=== PATIENT | female | born 1965 | race Caucasian/White ===

== ENCOUNTER 2017-04-09 23:23 | Emergency (ER) | payer MEDICAID ==
[~2017-04-09] VITALS: Ht 177.8 cm; Wt 89.8 kg
[~2017-04-09 23:23] MED LIST: CYCL-394 PO; ESCI10TA45 PO; IBUP-1051 PO; IBUP-1984 PO; LEVO125T PO; LEVO125T69 PO; ONDA8TAB9 PO; SUMA6VIA19 SQ
[2017-04-09] MEDS ORDERED: HYDROmorphone inj. 0.5 MG/0.5 ML DISP.SYRIN IM ONE (23:40)
[2017-04-10] MEDS ORDERED: IBUP-1984 PO (00:11)
[2017-04-10] MEDS ORDERED: HYDR-3965 PO (00:11)
[2017-04-10] MEDS ORDERED: LEVO175T2 PO (00:11)
[2017-04-10 01:09] VITALS: BP 145/89
== END 2017-04-10 01:13 | disposition home or self-care (01) ==
LOC: ER 23:23
DX: S60.221A Contusion of right hand, initial encounter (principal); G43.909 Migraine, unspecified, not intractable, without status migrainosus; I10 Essential (primary) hypertension; F17.200 Nicotine dependence, unspecified, uncomplicated; Z86.14 Personal history of Methicillin resistant Staphylococcus aureus infection; Z86.19 Personal history of other infectious and parasitic diseases; Z88.5 Allergy status to narcotic agent; Z79.899 Other long term (current) drug therapy; W22.8XXA Striking against or struck by other objects, initial encounter; Y93.89 Activity, other specified; Y92.89 Other specified places as the place of occurrence of the external cause; Y99.8 Other external cause status
CPT/HCPCS: 29125; 71101; 73130; 96372; 99284; J1170; 96361; 96374

== ENCOUNTER 2017-08-17 15:11 | Outpatient (CLI) | payer MEDICAID ==
[~2017-08-17 15:11] MED LIST changes: +LEVO175T2 PO
== END 2017-08-17 23:59 | disposition home or self-care (01) ==
LOC: RAD 15:11
PROVIDERS: ATTEND Nurse Practitioner Family
DX: M79.631 Pain in right forearm (principal); F17.200 Nicotine dependence, unspecified, uncomplicated
CPT/HCPCS: 73090

== ENCOUNTER 2018-03-09 18:55 | Emergency (ER) | payer MEDICAID ==
[~2018-03-09] VITALS: Ht 180.3 cm; Wt 63.4 kg
--- NOTE | 2018-03-09 19:59 | NUR ---
Patient laying on gurney, very sleepy and whipers. I will continue to monitor.
--- NOTE | 2018-03-09 21:20 | NUR ---
Patient with radiology
--- NOTE | 2018-03-09 21:34 | NUR ---
Patient is back from xray.
[2018-03-09] MEDS ORDERED: NAPR-56 PO (21:50)
[2018-03-09] MEDS ORDERED: SUMAtriptan succ. 6 MG/0.5ml vial SQ ONE (21:50)
[2018-03-09 22:13] VITALS: BP 157/113
== END 2018-03-09 22:18 | disposition home or self-care (01) ==
LOC: ER 18:55
DX: S51.811A Laceration without foreign body of right forearm, initial encounter (principal); M25.572 Pain in left ankle and joints of left foot; M24.562 Contracture, left knee; R51 Headache; I10 Essential (primary) hypertension; F17.210 Nicotine dependence, cigarettes, uncomplicated; Z98.51 Tubal ligation status; Z98.890 Other specified postprocedural states; Z88.5 Allergy status to narcotic agent; Z79.899 Other long term (current) drug therapy; Y04.0XXA Assault by unarmed brawl or fight, initial encounter; Y93.89 Activity, other specified; Y92.89 Other specified places as the place of occurrence of the external cause; Y99.9 Unspecified external cause status
CPT/HCPCS: 12002; 70450; 72125; 73560; 73610; 96372; 99284; J3030

== ENCOUNTER 2018-04-07 09:19 | Emergency (ER) | payer MEDICAID ==
[~2018-04-07] VITALS: Ht 180.3 cm; Wt 96.0 kg
[~2018-04-07 09:19] MED LIST changes: +NAPR-56 PO
[2018-04-07 09:47] LABS: BASOPHILS % (AUTO) 0.2 % (0-1); EOSINOPHILS # (AUTO) 0.4 X10'3 (0-0.9); HEMATOCRIT 41.9 % (35.0-45.0); HEMOGLOBIN 14.3 g/dl (12.0-16.0); LYMPHOCYTES # (AUTO) 2.2 X10'3 (1.1-4.8); LYMPHOCYTES % (AUTO) 29.9 % (21-51); MEAN CORPUSCULAR HEMOGLOBIN 32.4 PG (27.0-31.0); MEAN CORPUSCULAR HGB CONC 34.2 g/dL (33.0-36.5); MEAN CORPUSCULAR VOLUME 94.8 FL (78-98); MEAN PLATELET VOLUME 7.7 FL (7.4-10.4); MONOCYTES # (AUTO) 0.5 X10'3 (0-0.9); MONOCYTES % (AUTO) 7.1 % (2-12); NEUTROPHILS # (AUTO) 4.3 X10'3 (1.8-7.7); NEUTROPHILS % (AUTO) 57.8 % (42-75); PLATELET COUNT 289 X10'3 (140-440); RED BLOOD COUNT 4.42 X10'6 (4.20-5.60); RED CELL DISTRIBUTION WIDTH 14.8 % (11.5-14.5); WHITE BLOOD COUNT 7.5 X10'3 (4.5-11.0)
[2018-04-07 09:57] LABS: ALANINE AMINOTRANSFERASE 53 U/L (12-78); ALBUMIN 3.5 G/DL (3.4-5.0); ALBUMIN/GLOBULIN RATIO 0.7 (1.1-1.5); ALKALINE PHOSPHATASE 90 IU/L (46-116); ANION GAP 10 (8-16); ASPARTATE AMINO TRANSFERASE 60 U/L (10-37); BILIRUBIN,TOTAL 0.4 MG/DL (0.1-1.0); BLOOD UREA NITROGEN 17 MG/DL (7-18); BUN/CREATININE RATIO 14.2 (6.6-38.0); CALCIUM 9.3 MG/DL (8.5-10.1); CHLORIDE 102 MMOL/L (99-107); GLUCOSE 89 MG/DL (70-104); PARTIAL THROMBOPLASTIN TIME 29 SECONDS (22-32); POTASSIUM 3.8 MMOL/L (3.5-5.1); PROTHROMBIN TIME 10.2 SECONDS (9.0-12.0); SODIUM 138 MMOL/L (135-145); TOTAL CARBON DIOXIDE 25.9 MMOL/L (24-32); TOTAL PROTEIN 8.7 G/DL (6.4-8.2); eGFR 47 ML/MIN
[2018-04-07 10:02] LABS: TROPONIN I < 0.04 NG/ML (0.0-0.05)
[2018-04-07] MEDS ORDERED: LEVO175T2 PO (12:40)
--- NOTE | 2018-04-07 13:37 | NUR ---
Per [facility], PT was last seen on August 21, 2017. Her TSH level was 150.
[2018-04-07] MEDS ORDERED: levoTHYROXINE sod inj. 100mcg/5 ml vial IV SCH (13:45)
[2018-04-07 14:38] VITALS: BP 162/97
== END 2018-04-07 14:39 | disposition home or self-care (01) ==
LOC: ER 09:19
DX: R53.1 Weakness (principal); R42 Dizziness and giddiness; I10 Essential (primary) hypertension; E03.9 Hypothyroidism, unspecified; R41.0 Disorientation, unspecified; G43.909 Migraine, unspecified, not intractable, without status migrainosus; Z76.0 Encounter for issue of repeat prescription; Z98.51 Tubal ligation status; Z98.890 Other specified postprocedural states; Z88.5 Allergy status to narcotic agent; Z79.899 Other long term (current) drug therapy; Z86.73 Personal history of transient ischemic attack (TIA), and cerebral infarction without residual deficits
CPT/HCPCS: 36415; 70450; 71045; 80053; 82948; 84443; 84484; 85025; 85610; 85730; 93005; 96374; 99284; 99285

== ENCOUNTER 2019-04-11 13:05 | Emergency (ER) | payer MEDICAID ==
[~2019-04-11] VITALS: Ht 180.3 cm; Wt 86.4 kg
[~2019-04-11 13:05] MED LIST changes: -NAPR-56 PO
[2019-04-11 13:22] VITALS: BP 154/104
[2019-04-11] MEDS ORDERED: diphenhydrAMINE 25mg capsule PO ONE (16:55)
[2019-04-11] MEDS ORDERED: proCHLORperazine 10 MG/2 ml inj IM ONE (16:55)
[2019-04-11] MEDS: ketorolac tromethamine 15mg/ml inj. IM ONE ×2 (17:13→17:22)
[2019-04-11 17:17] LABS: BASOPHILS # (AUTO) 0.1 X10'3 (0-0.2); BASOPHILS % (AUTO) 1.1 % (0-1); EOSINOPHILS # (AUTO) 0.2 X10'3 (0-0.9); EOSINOPHILS % (AUTO) 2.1 % (0-6); HEMATOCRIT 47.4 % (35.0-45.0); HEMOGLOBIN 16.2 g/dl (12.0-16.0); LYMPHOCYTES # (AUTO) 1.7 X10'3 (1.1-4.8); LYMPHOCYTES % (AUTO) 18.5 % (21-51); MEAN CORPUSCULAR HEMOGLOBIN 32.3 PG (27.0-31.0); MEAN CORPUSCULAR HGB CONC 34.2 g/dL (33.0-36.5); MEAN CORPUSCULAR VOLUME 94.5 FL (78-98); MEAN PLATELET VOLUME 7.7 FL (7.4-10.4); MONOCYTES # (AUTO) 0.6 X10'3 (0-0.9); MONOCYTES % (AUTO) 6.5 % (2-12); NEUTROPHILS # (AUTO) 6.6 X10'3 (1.8-7.7); NEUTROPHILS % (AUTO) 71.8 % (42-75); PLATELET COUNT 304 X10'3 (140-440); RED BLOOD COUNT 5.01 X10'6 (4.20-5.60); RED CELL DISTRIBUTION WIDTH 13.4 % (11.5-14.5); WHITE BLOOD COUNT 9.2 X10'3 (4.5-11.0)
[2019-04-11] MEDS ORDERED: SUMAtriptan succ. 6 MG/0.5ml vial SQ ONE (17:25)
[2019-04-11 17:27] LABS: ALANINE AMINOTRANSFERASE 56 U/L (12-78); ALBUMIN 3.7 G/DL (3.4-5.0); ALBUMIN/GLOBULIN RATIO 0.6 (1.1-1.5); ALKALINE PHOSPHATASE 125 IU/L (46-116); ANION GAP 8 (8-16); ASPARTATE AMINO TRANSFERASE 45 U/L (10-37); BILIRUBIN,TOTAL 0.6 MG/DL (0.1-1.0); BLOOD UREA NITROGEN 11 MG/DL (7-18); BUN/CREATININE RATIO 11.8 (6.6-38.0); CALCIUM 9.5 MG/DL (8.5-10.1); CHLORIDE 101 MMOL/L (99-107); CREATININE 0.93 MG/DL (0.40-0.90); POTASSIUM 4.2 MMOL/L (3.5-5.1); SODIUM 138 MMOL/L (135-145); TOTAL CARBON DIOXIDE 28.8 MMOL/L (24-32); TOTAL PROTEIN 9.4 G/DL (6.4-8.2); eGFR 63 ML/MIN
[2019-04-11 17:39] LABS: GLUCOSE 95 MG/DL (70-104)
[2019-04-11] MEDS ORDERED: levoTHYROXINE 125mcg tablet PO STA (17:49)
[2019-04-11] MEDS ORDERED: LEVO75TA PO (18:21)
[2019-04-11] MEDS ORDERED: LEVO50TA PO (18:21)
[2019-04-11] MEDS ORDERED: SUMA50TA PO (18:21)
== END 2019-04-11 19:03 | disposition home or self-care (01) ==
LOC: ER 13:06
DX: E03.9 Hypothyroidism, unspecified (principal); G43.909 Migraine, unspecified, not intractable, without status migrainosus; I10 Essential (primary) hypertension; F41.9 Anxiety disorder, unspecified; F32.9 Major depressive disorder, single episode, unspecified; Z86.19 Personal history of other infectious and parasitic diseases; Z86.14 Personal history of Methicillin resistant Staphylococcus aureus infection; Z98.51 Tubal ligation status; Z98.890 Other specified postprocedural states; Z88.5 Allergy status to narcotic agent; Z79.899 Other long term (current) drug therapy
CPT/HCPCS: 36415; 80053; 84443; 85025; 96372; 99284; J0780; Q0163; J1885; J3030

== ENCOUNTER 2020-01-28 14:40 | Emergency (ER) | payer MEDICAID ==
[~2020-01-28] VITALS: Ht 179.1 cm; Wt 91.9 kg
[~2020-01-28 14:40] MED LIST changes: +LEVO50TA PO
[2020-01-28 14:48] VITALS: BP 161/108
[2020-01-29] MEDS ORDERED: MINO100T PO (12:06)
[2020-01-29] MEDS ORDERED: MUPI22OI30 TOP (12:06)
[2020-01-29] MEDS ORDERED: IBUP-1984 PO (12:06)
== END 2020-01-28 17:07 | disposition left against medical advice (07) ==
LOC: ER 14:40
DX: R21 Rash and other nonspecific skin eruption (principal); Z53.21 Procedure and treatment not carried out due to patient leaving prior to being seen by health care provider
CPT/HCPCS: 99281

== ENCOUNTER 2020-01-29 11:40 | Emergency (ER) | payer MEDICAID ==
[~2020-01-29] VITALS: Ht 180.3 cm; Wt 81.8 kg
[2020-01-29 11:50] VITALS: BP 158/97
[2020-01-29] MEDS ORDERED: MINO100T PO (12:06)
[2020-01-29] MEDS ORDERED: IBUP-1984 PO (12:06)
[2020-01-29] MEDS ORDERED: MUPI22OI30 TOP (12:06)
== END 2020-01-29 12:36 | disposition home or self-care (01) ==
LOC: ER 11:40
DX: L73.9 Follicular disorder, unspecified (principal); G43.909 Migraine, unspecified, not intractable, without status migrainosus; I10 Essential (primary) hypertension; F41.9 Anxiety disorder, unspecified; F32.9 Major depressive disorder, single episode, unspecified; E07.9 Disorder of thyroid, unspecified; Z98.51 Tubal ligation status; Z88.5 Allergy status to narcotic agent; Z79.899 Other long term (current) drug therapy
CPT/HCPCS: 99283

== ENCOUNTER 2020-05-01 18:36 | Emergency (ER) | payer MEDICAID ==
[~2020-05-01] VITALS: Ht 177.8 cm; Wt 93.2 kg
[~2020-05-01 18:36] MED LIST changes: +MINO100T PO
[2020-05-01] MEDS ORDERED: HYDROcodone/acetaminophen 10/325mg tab PO ONE (19:20)
[2020-05-01 20:18] VITALS: BP 158/92
== END 2020-05-01 20:00 | disposition home or self-care (01) ==
LOC: ER 18:37
DX: S80.12XA Contusion of left lower leg, initial encounter (principal); S16.1XXA Strain of muscle, fascia and tendon at neck level, initial encounter; G43.909 Migraine, unspecified, not intractable, without status migrainosus; I10 Essential (primary) hypertension; F41.9 Anxiety disorder, unspecified; F32.9 Major depressive disorder, single episode, unspecified; Z86.19 Personal history of other infectious and parasitic diseases; Z86.14 Personal history of Methicillin resistant Staphylococcus aureus infection; Z98.51 Tubal ligation status; Z98.890 Other specified postprocedural states; Z88.5 Allergy status to narcotic agent; Z79.899 Other long term (current) drug therapy; W18.39XA Other fall on same level, initial encounter; Y93.89 Activity, other specified; Y92.89 Other specified places as the place of occurrence of the external cause; Y99.8 Other external cause status
CPT/HCPCS: 73590; 99284

== ENCOUNTER 2020-10-14 13:27 | Emergency (ER) | payer MEDICAID | END 2020-10-14 16:08 | disposition left against medical advice (07) | LOC: ER 13:27 | DX: Z53.21 Procedure and treatment not carried out due to patient leaving prior to being seen by health care provider (principal) ==

== ENCOUNTER 2020-10-27 10:07 | Emergency (ER) | payer MEDICAID ==
[~2020-10-27] VITALS: Ht 177.8 cm; Wt 91.8 kg
[2020-10-27 10:22] VITALS: BP 154/103
== END 2020-10-27 14:08 | disposition left against medical advice (07) ==
LOC: ER 10:07
DX: R07.89 Other chest pain (principal); Z53.21 Procedure and treatment not carried out due to patient leaving prior to being seen by health care provider

== ENCOUNTER 2020-10-28 11:00 | Emergency (ER) | payer MEDICAID ==
[~2020-10-28] VITALS: Ht 177.8 cm; Wt 91.8 kg
[2020-10-28] MEDS ORDERED: acetaminophen 325mg tablet PO ONE (12:50)
[2020-10-28 13:37] VITALS: BP 109/79
== END 2020-10-28 13:42 | disposition home or self-care (01) ==
LOC: ER 11:01
DX: S20.211A Contusion of right front wall of thorax, initial encounter (principal); G43.909 Migraine, unspecified, not intractable, without status migrainosus; I10 Essential (primary) hypertension; Z86.14 Personal history of Methicillin resistant Staphylococcus aureus infection; Z86.19 Personal history of other infectious and parasitic diseases; Z98.51 Tubal ligation status; Z98.890 Other specified postprocedural states; Z88.8 Allergy status to other drugs, medicaments and biological substances; Z79.899 Other long term (current) drug therapy; W22.8XXA Striking against or struck by other objects, initial encounter; Y93.01 Activity, walking, marching and hiking; Y92.89 Other specified places as the place of occurrence of the external cause; Y99.8 Other external cause status
CPT/HCPCS: 99282; 99283

== ENCOUNTER 2021-05-23 03:12 | Emergency (ER) | payer MEDICAID ==
[~2021-05-23] VITALS: Ht 177.8 cm; Wt 92.7 kg
[~2021-05-23 03:12] MED LIST changes: +SUMA6VIA17 SQ; -SUMA6VIA19 SQ
[2021-05-23 03:16] VITALS: BP 160/101
[2021-05-23] MEDS ORDERED: TETanus/Pertussis (Acell)/Diphther VAC/PF (Tdap-Adult) 0.5ml syringe IMVAC ONE (04:50)
== END 2021-05-23 05:12 ==
LOC: ER 03:12
DX: S61.411A Laceration without foreign body of right hand, initial encounter (principal); G43.909 Migraine, unspecified, not intractable, without status migrainosus; I10 Essential (primary) hypertension; F41.9 Anxiety disorder, unspecified; F32.A Depression, unspecified; Z00.8 Encounter for other general examination; Z86.19 Personal history of other infectious and parasitic diseases; Z86.14 Personal history of Methicillin resistant Staphylococcus aureus infection; Z98.51 Tubal ligation status; Z98.890 Other specified postprocedural states; Z88.5 Allergy status to narcotic agent; Z88.8 Allergy status to other drugs, medicaments and biological substances; Z20.3 Contact with and (suspected) exposure to rabies; Z79.899 Other long term (current) drug therapy; W45.8XXA Other foreign body or object entering through skin, initial encounter; Y93.89 Activity, other specified; Y92.89 Other specified places as the place of occurrence of the external cause; Y99.8 Other external cause status
CPT/HCPCS: 12001; 90471; 90715; 99283

== ENCOUNTER 2021-08-09 00:15 | Emergency (ER) | payer MEDICAID ==
[~2021-08-09] VITALS: Ht 177.8 cm; Wt 96.8 kg
[2021-08-09 00:59] VITALS: BP 166/120
== END 2021-08-09 03:45 | disposition left against medical advice (07) ==
LOC: ER 00:16
DX: Z00.8 Encounter for other general examination (principal); Z53.21 Procedure and treatment not carried out due to patient leaving prior to being seen by health care provider

== ENCOUNTER 2021-12-01 13:10 | Emergency (ER) | payer MEDICAID ==
[~2021-12-01] VITALS: Ht 180.3 cm; Wt 94.5 kg
[2021-12-01 13:14] VITALS: BP 180/100
[2021-12-01] MEDS ORDERED: HYDR-3965 PO (16:21)
== END 2021-12-01 16:42 | disposition home or self-care (01) ==
LOC: ER 13:11
DX: S20.211A Contusion of right front wall of thorax, initial encounter (principal); G43.909 Migraine, unspecified, not intractable, without status migrainosus; I10 Essential (primary) hypertension; Z88.8 Allergy status to other drugs, medicaments and biological substances; Z88.5 Allergy status to narcotic agent; Z98.51 Tubal ligation status; W19.XXXA Unspecified fall, initial encounter; Y93.89 Activity, other specified; Y92.89 Other specified places as the place of occurrence of the external cause; Y99.8 Other external cause status
CPT/HCPCS: 71045; 99283

== ENCOUNTER 2022-04-13 18:39 | Emergency (ER) | payer MEDICAID ==
[~2022-04-13] VITALS: Ht 177.8 cm; Wt 97.7 kg
[2022-04-13 19:41] LABS: BASOPHILS # (AUTO) 0.2 X10'3 (0-0.2); BASOPHILS % (AUTO) 1.4 % (0-1); EOSINOPHILS # (AUTO) 0.2 X10'3 (0-0.9); EOSINOPHILS % (AUTO) 1.3 % (0-6); HEMATOCRIT 43.3 % (35.0-45.0); HEMOGLOBIN 14.5 g/dl (12.0-16.0); LYMPHOCYTES # (AUTO) 1.6 X10'3 (1.1-4.8); LYMPHOCYTES % (AUTO) 13.7 % (21-51); MEAN CORPUSCULAR HEMOGLOBIN 32.6 PG (27.0-31.0); MEAN CORPUSCULAR HGB CONC 33.6 g/dL (33.0-36.5); MEAN CORPUSCULAR VOLUME 97.2 FL (78-98); MEAN PLATELET VOLUME 7.9 FL (7.4-10.4); MONOCYTES # (AUTO) 1.2 X10'3 (0-0.9); MONOCYTES % (AUTO) 9.9 % (2-12); NEUTROPHILS # (AUTO) 8.8 X10'3 (1.8-7.7); NEUTROPHILS % (AUTO) 73.7 % (42-75); PLATELET COUNT 266 X10'3 (140-440); RED BLOOD COUNT 4.46 X10'6 (4.20-5.60); RED CELL DISTRIBUTION WIDTH 14.1 % (11.5-14.5); WHITE BLOOD COUNT 11.9 X10'3 (4.5-11.0)
[2022-04-13 19:45] LABS: ALANINE AMINOTRANSFERASE 44 U/L (12-78); ALBUMIN 3.5 G/DL (3.4-5.0); ALBUMIN/GLOBULIN RATIO 0.6 (1.1-1.5); ALKALINE PHOSPHATASE 98 IU/L (46-116); ANION GAP 3 (8-16); ASPARTATE AMINO TRANSFERASE 46 U/L (10-37); BILIRUBIN,TOTAL 1.1 MG/DL (0.1-1.0); BLOOD UREA NITROGEN 10 MG/DL (7-18); BUN/CREATININE RATIO 9.3 (6.6-38.0); CALCIUM 9.3 MG/DL (8.5-10.1); CHLORIDE 98 MMOL/L (99-107); CREATININE 1.08 MG/DL (0.40-0.90); GLUCOSE 112 MG/DL (70-104); POTASSIUM 3.2 MMOL/L (3.5-5.1); SODIUM 130 MMOL/L (135-145); eGFR 52 ML/MIN
[2022-04-13] MEDS ORDERED: normal saline 1000ML IV soln IVB ONE (20:35)
[2022-04-13] MEDS ORDERED: diphenhydrAMINE 50 mg/ml inj IV ONE (20:35)
[2022-04-13] MEDS ORDERED: haloperidol lactate 5mg/ml inj IM ONE (20:35)
[2022-04-13] MEDS ORDERED: ketorolac trometh. 30mg/ml inj. IV ONE (20:35)
[2022-04-13] MEDS ORDERED: AZIT-83 PO (22:16)
[2022-04-13 23:30] VITALS: BP 154/87
[2022-04-14] MEDS ORDERED: AMOX-580 PO (00:24)
== END 2022-04-14 00:53 | disposition home or self-care (01) ==
LOC: ER 18:39
DX: J32.9 Chronic sinusitis, unspecified (principal); G43.909 Migraine, unspecified, not intractable, without status migrainosus; I10 Essential (primary) hypertension; Z88.5 Allergy status to narcotic agent; Z88.8 Allergy status to other drugs, medicaments and biological substances; Z98.51 Tubal ligation status
CPT/HCPCS: 36415; 71045; 80053; 83880; 84145; 84484; 85025; 93005; 96372; 96374; 96375; 99285; J1200; J1630; J1885; J7030

== ENCOUNTER 2023-06-17 10:19 | Emergency (ER) | payer MEDICAID ==
[~2023-06-17] VITALS: Ht 177.8 cm; Wt 99.5 kg
[~2023-06-17 10:19] MED LIST changes: -MINO100T PO; +MINO100T10 PO
[2023-06-17 10:38] VITALS: BP 159/106; PULSE 76; RESP 18; TEMP 97.8; O2SAT 98
[2023-06-17] MEDS ORDERED: PRED20TA PO (12:23)
[2023-06-17] MEDS: dexamethasone sod phosphate 10mg/ml inj IM STA (12:43)
== END 2023-06-17 12:55 | disposition home or self-care (01) ==
LOC: ER 10:20
DX: M25.571 Pain in right ankle and joints of right foot (principal); G43.909 Migraine, unspecified, not intractable, without status migrainosus; I10 Essential (primary) hypertension; Z88.6 Allergy status to analgesic agent; Z88.5 Allergy status to narcotic agent; Z79.899 Other long term (current) drug therapy; Z79.1 Long term (current) use of non-steroidal anti-inflammatories (NSAID); Z98.51 Tubal ligation status
CPT/HCPCS: 73610; 96372; 99284; J1100

== ENCOUNTER 2023-09-25 11:18 | Emergency (ER) | payer MEDICAID ==
[2023-09-25] MEDS: LIDOcaine/epinephrine/tetracaine TOPICAL sol 3 ML syringe TOP ONE (13:38)
[2023-09-25] MEDS: LIDOcaine 1% 30ml preserv. free vial SQ STA (14:11)
[2023-09-25] MEDS ORDERED: CEPH-585 PO (14:45)
[2023-09-25] MEDS ORDERED: SULF1TAB45 PO (14:45)
[2023-09-25] MEDS ORDERED: DOXY-356 PO (14:57)
[2023-09-25 15:00] VITALS: BP 154/102; PULSE 69; RESP 16; TEMP 98.1; O2SAT 97
== END 2023-09-25 15:03 | disposition home or self-care (01) ==
LOC: ER 11:19
DX: S91.312A Laceration without foreign body, left foot, initial encounter (principal); M25.571 Pain in right ankle and joints of right foot; G43.909 Migraine, unspecified, not intractable, without status migrainosus; I10 Essential (primary) hypertension; F41.9 Anxiety disorder, unspecified; F32.A Depression, unspecified; Z88.5 Allergy status to narcotic agent; Z79.899 Other long term (current) drug therapy; Z79.2 Long term (current) use of antibiotics; Z79.1 Long term (current) use of non-steroidal anti-inflammatories (NSAID); Z98.51 Tubal ligation status; W04.XXXA Fall while being carried or supported by other persons, initial encounter; Y93.89 Activity, other specified; Y92.89 Other specified places as the place of occurrence of the external cause; Y99.8 Other external cause status
CPT/HCPCS: 12006; 73630; 99283; J3490; J7030; A6258; A6449

== ENCOUNTER 2023-11-06 12:35 | Outpatient (CLI) | payer MEDICAID ==
[~2023-11-06 12:35] MED LIST changes: +CEPH-585 PO
== END 2023-11-06 23:59 | disposition home or self-care (01) ==
LOC: VAS 12:35
PROVIDERS: ATTEND Nurse Practitioner Family
DX: I73.9 Peripheral vascular disease, unspecified (principal); M79.604 Pain in right leg
CPT/HCPCS: 93922

== ENCOUNTER 2023-11-06 13:44 | Outpatient (CLI) | payer MEDICAID | END 2023-11-06 23:59 | disposition home or self-care (01) | LOC: CARD DIAG 13:44 | PROVIDERS: ATTEND Family Medicine | DX: I36.1 Nonrheumatic tricuspid (valve) insufficiency (principal); R60.0 Localized edema | CPT/HCPCS: 93306 ==

== ENCOUNTER 2024-03-08 14:27 | Emergency (ER) | payer MEDICAID ==
[~2024-03-08] VITALS: Ht 180.3 cm; Wt 88.2 kg
[2024-03-08] MEDS ORDERED: LIDO700A32 TD (16:40)
[2024-03-08] MEDS ORDERED: CYCL-1 PO (16:40)
[2024-03-08] MEDS ORDERED: AMOX-580 PO (16:40)
[2024-03-08] MEDS ORDERED: IBUP-1984 PO (16:40)
[2024-03-08] MEDS: LIDOcaine 5% patch TP STA (16:49)
[2024-03-08] MEDS ORDERED: LEVO150T8 PO (16:57)
[2024-03-08] MEDS ORDERED: AMLO5TAB16 (16:57)
[2024-03-08 17:00] VITALS: BP 168/107; PULSE 68; RESP 16; O2SAT 98
== END 2024-03-08 17:09 | disposition home or self-care (01) ==
LOC: ER 14:28
DX: M54.31 Sciatica, right side (principal); J01.00 Acute maxillary sinusitis, unspecified; Z76.0 Encounter for issue of repeat prescription; F17.210 Nicotine dependence, cigarettes, uncomplicated; I10 Essential (primary) hypertension; G43.909 Migraine, unspecified, not intractable, without status migrainosus; F41.9 Anxiety disorder, unspecified; F32.A Depression, unspecified; Z88.5 Allergy status to narcotic agent; Z88.8 Allergy status to other drugs, medicaments and biological substances; Z79.899 Other long term (current) drug therapy; Z79.1 Long term (current) use of non-steroidal anti-inflammatories (NSAID); Z98.51 Tubal ligation status
CPT/HCPCS: 99282; 99283

== ENCOUNTER 2024-05-09 13:11 | Emergency (ER) | payer MEDICAID ==
[~2024-05-09] VITALS: Ht 177.8 cm; Wt 86.4 kg
[~2024-05-09 13:11] MED LIST changes: +AMLO5TAB16; +CYCL-1 PO; +LEVO150T8 PO; +LIDO700A32 TD
[2024-05-09] MEDS: HYDROcodone/acetaminophen 5mg/325mg tablet PO ONE (19:00)
[2024-05-09] MEDS: ketorolac trometh 30MG/ML vial 30 MG/ML VIAL IM ONE (19:01)
[2024-05-09] MEDS: dexamethasone sod phosphate 10mg/ml inj IM STA (19:01)
[2024-05-09 19:20] VITALS: BP 118/68; PULSE 70; RESP 18; TEMP 98.6; O2SAT 98
== END 2024-05-09 19:21 | disposition home or self-care (01) ==
LOC: ER 13:12
DX: S80.01XA Contusion of right knee, initial encounter (principal); I10 Essential (primary) hypertension; G43.909 Migraine, unspecified, not intractable, without status migrainosus; F41.9 Anxiety disorder, unspecified; F32.A Depression, unspecified; E07.9 Disorder of thyroid, unspecified; Z88.5 Allergy status to narcotic agent; Z98.51 Tubal ligation status; Z88.8 Allergy status to other drugs, medicaments and biological substances; Z79.1 Long term (current) use of non-steroidal anti-inflammatories (NSAID); Z79.899 Other long term (current) drug therapy; W18.39XA Other fall on same level, initial encounter; Y93.89 Activity, other specified; Y92.89 Other specified places as the place of occurrence of the external cause; Y99.8 Other external cause status
CPT/HCPCS: 29505; 29530; 73564; 99284

== ENCOUNTER 2024-06-11 22:56 | Emergency (ER) | payer MEDICAID ==
[~2024-06-11] VITALS: Ht 177.8 cm; Wt 84.8 kg
[2024-06-11 22:58] VITALS: TEMP 97.6
[2024-06-12] MEDS: HYDROcodone/acetaminophen 5mg/325mg tablet PO ONE (01:08)
[2024-06-12] MEDS ORDERED: HYDR-3965 PO (01:37)
[2024-06-12 02:05] VITALS: BP 153/106; PULSE 73; RESP 16; O2SAT 99
== END 2024-06-12 02:09 | disposition home or self-care (01) ==
LOC: ER 22:58
DX: S20.219A Contusion of unspecified front wall of thorax, initial encounter (principal); M25.561 Pain in right knee; I10 Essential (primary) hypertension; F32.A Depression, unspecified; F41.9 Anxiety disorder, unspecified; Z88.5 Allergy status to narcotic agent; Z88.8 Allergy status to other drugs, medicaments and biological substances; Z98.51 Tubal ligation status; W19.XXXA Unspecified fall, initial encounter; Y93.89 Activity, other specified; Y92.89 Other specified places as the place of occurrence of the external cause; Y99.8 Other external cause status
CPT/HCPCS: 71101; 73564; 99284